=== PATIENT | female | born 1990 | race American Indian/Alaskan Native ===

== ENCOUNTER 2016-06-26 12:07 | Outpatient (CLI) | payer OTHER ==
[2016-06-26 12:31] LABS: Basophils % (Auto) 0.6 % (0.0-1.8); Hematocrit 37.1 % (30.3-42.9); Hemoglobin 12.5 gm/dl (10.1-14.3); Mean Corpuscular HGB Conc 34 % (30-34); Mean Corpuscular Volume 74 fl (79-97); Platelet Count 308 K/mm3 (140-440); Red Blood Count 5.04 M/mm3 (3.65-5.03); Red Cell Distribution Width 15.2 % (13.2-15.2); White Blood Count 5.8 K/mm3 (4.5-11.0)
[2016-06-26 12:35] LABS: Mean Corpuscular Hemoglobin 25 pg (28-32)
[2016-06-26 12:47] LABS: Alanine Aminotransferase 17 units/L (7-56); Albumin 3.6 g/dL (3.9-5); Alkaline Phosphatase 100 units/L (35-129); Anion Gap 18 mmol/L; Bilirubin,Total 0.2 mg/dL (0.1-1.2); Blood Urea Nitrogen 13 mg/dL (7-17); Calcium 9.2 mg/dL (8.4-10.2); Carbon Dioxide 22 mmol/L (22-30); Chloride 103.7 mmol/L (98-107); Glucose 91 mg/dL (65-100); Potassium 4.1 mmol/L (3.6-5.0); Sodium 140 mmol/L (137-145)
[2016-06-26 14:49] LABS: Albumin/Globulin Ratio 0.9 %; Total Protein 7.6 g/dL (6.3-8.2)
== END 2016-06-26 12:08 | disposition home or self-care (01) ==
LOC: LAB 12:07
PROVIDERS: ATTEND Internal Medicine
DX: D64.9 Anemia, unspecified (principal)
CPT/HCPCS: 36415; 80053; 85025

== ENCOUNTER 2017-01-07 10:12 | Outpatient (CLI) | payer OTHER ==
--- NOTE | 2017-01-07 11:35 | XRay Report ---
BILATERAL KNEES, 2 VIEWS History: Bilateral knee pain Findings: Normal bone mineralization. No acute osseous findings or joint pathology is detected. The soft tissues are unremarkable. Impression: Unremarkable bilateral knees.
== END 2017-01-07 10:13 | disposition home or self-care (01) ==
LOC: XRAY 10:12
PROVIDERS: ATTEND Internal Medicine
DX: M25.561 Pain in right knee (principal); M25.562 Pain in left knee; D64.9 Anemia, unspecified; A41.9 Sepsis, unspecified organism; K52.9 Noninfective gastroenteritis and colitis, unspecified; K76.0 Fatty (change of) liver, not elsewhere classified; K75.0 Abscess of liver; K76.89 Other specified diseases of liver